=== PATIENT | female | born 1985 | race Caucasian/White ===

== ENCOUNTER 2022-05-21 06:55 | Day surgery (SDC) | payer BC ==
[~2022-05-21] VITALS: Ht 160 cm; Wt 100.0 kg
--- NOTE | 2022-05-21 08:57 | NUR ---
LE 0855 PATIENT CHECKED ON PRE OP. PATIENT USED VOIDED. PATIENT BACK TO ROOM. WARM BLANKET GIVEN. CALL LIGHT WITHIN REACH NO FUTHER NEEDS.
--- NOTE | 2022-05-21 10:31 | NUR ---
05/21/22 1031 Sheets,Nadia 1014 PT ARRIVED TO PACU ASLEEP ON 6L VIA MASK. RESP EVEN AND UNLABORED. 1018 O2 REMOVED AND PT REPORT "OUCH" PT RATES PAIN 2/10 AND TOLERBALE AT THIS TIME. 1023 MD AT BEDSIDE, PT TALKING AND REPORTS "I FEEL LIKE I AM ON A [id number]"
--- NOTE | 2022-05-21 11:32 | NUR ---
AT BS. DIZZINESS SO SLEEPING LOMNGER.
--- NOTE | 2022-05-21 12:07 | NUR ---
UP TO BR, VOIDS QS NO VAGINAL BLEEDING. CONTS SOME DIZZINESS AND UNSTEADY GAIT ALLOW TO SLEEP LONGER.
--- NOTE | 2022-05-21 12:30 | NUR ---
ALLOW TO SLEEP. VS WILL BE TAKEN LATER.
--- NOTE | 2022-05-21 13:05 | NUR ---
PT REPORTS SHE FEELS MUCH BETTER NOW. HAS STEADY GAIT. WNTS TO G O HOME.
--- NOTE | 2022-07-09 18:15 | OR ---
[facility] [address] [facility] [place], [place] [address] Signed DATE OF OPERATION: 05/21/2022 SURGEON: Tata Way DO PREOPERATIVE DIAGNOSES: 1. Abnormal uterine bleeding. 2. Vaginal ulceration. POSTOPERATIVE DIAGNOSES: 1. Abnormal uterine bleeding. 2. Vaginal ulceration. PROCEDURES PERFORMED: 1. Exam under anesthesia. 2. Vaginal biopsy. 3. Hysteroscopy, dilation and curettage. ESTIMATED BLOOD LOSS: 10 mL. SPECIMENS: 1. Vaginal biopsy. 2. Uterine curettings. FLUID DEFICIT: 80 mL. COMPLICATIONS: None. INDICATIONS: Ms. Mendez is a pleasant 37-year-old G0 female with abnormal uterine bleeding. Ultrasound demonstrated endometrium with possible submucosal cystic structure in the endometrial canal and she is scheduled for an in office hysteroscopy D and C. Upon presentation for that procedure, the patient was noted to have a vaginal ulceration at the apex of the vagina just right lateral of the cervix. Decision was made to perform exam under anesthesia, vaginal biopsy and hysteroscopy D and C in the operating room. Risks, benefits, and alternatives were discussed in detail with the patient. The patient understands and wished to proceed with the procedure. Electronically Signed By: TATA WAY DO (JD) 07/09/22 1815 PATIENT NAME: KAIT MENDEZ OPERATIVE REPORT DATE OF : 87 REPORT #: [id number] PHYSICIAN: WAY,TATA (ANGELITO) DO PCP: NO PRIMARY CARE PHYSICIAN REPORT IS CONFIDENTIAL AND NOT TO BE RELEASED WITHOUT AUTHORIZATION [facility] [address] [facility] [place], [place] [address] Signed TECHNIQUE: The patient was taken to the operating room where a time-out was performed to confirm correct patient and correct procedure. Anesthesia was adequately established and the patient was prepped and draped in the dorsal lithotomy position with her feet in Yellofin stirrups. ICPs were on running and no preoperative antibiotics or heparin were indicated. After appropriate time, the procedure was started and the anterior lip of the cervix was grasped with an Allis clamp. The pictures of the vaginal ulceration were performed and Allis clamps were placed in the vaginal epithelium lateral to the ulceration. Vaginal biopsy was performed of the ulceration using surgical scalpel and scissors. This was sent to pathology for further evaluation. The biopsy site was then repaired using 2-0 Vicryl in a running locked manner with excellent hemostasis. Attention was then turned to hysteroscopy, D and C. The cervix was gently dilated using Hegar dilators #7. An operative hysteroscope was then placed into the cervix and advanced under direct visualization to the uterine cavity. Normal appearing uterine cavity with no evidence of intracavitary lesions was noted. Circumferential curettage was performed using MyoSure Lite device and fluid deficit of 80 was appreciated. The hysteroscope was withdrawn and biopsy site was again evaluated. Monsel's solution was applied to the cervix and to the upper vagina to ensure hemostasis. The patient was then taken to PACU in good and stable condition. Sponge, needle, and instrument counts were correct x2 at the end of procedure. DO OPAL Araujo/TEVIN /[id number] Copies: ~ Electronically Signed By: TATA WAY DO (JD) 07/09/22 1815 PATIENT NAME: KAIT MENDEZ ALEX OPERATIVE REPORT DATE OF : 87 REPORT #: [id number] PHYSICIAN: TATA WAY DO (JD) PCP: NO PRIMARY CARE PHYSICIAN REPORT IS CONFIDENTIAL AND NOT TO BE RELEASED WITHOUT AUTHORIZATION
== END 2022-05-21 12:45 | disposition home or self-care (01) ==
LOC: DS 06:55 → OPS 06:55 → DS 12:00 → OPS 12:45
PROVIDERS: ATTEND Obstetrics & Gynecology
PROC: 0UBG7ZX Excision of Vagina, Via Natural or Artificial Opening, Diagnostic (ICD-10-PCS; principal; 2022-05-21 09:30)
PROC: 0UDB8ZZ Extraction of Endometrium, Via Natural or Artificial Opening Endoscopic (ICD-10-PCS; 2022-05-21 09:30)
DX: N93.9 Abnormal uterine and vaginal bleeding, unspecified (principal); N76.5 Ulceration of vagina; Z91.040 Latex allergy status
CPT/HCPCS: J0131; J1100; J1885; J2001; J2405; J2704; J3010; J7121